=== PATIENT | male | born 1995 | race Caucasian/White ===

== ENCOUNTER 2020-04-24 11:00 | Emergency (ER) | payer MEDICAID ==
[~2020-04-24] VITALS: Ht 172.7 cm; Wt 75.0 kg
[2020-04-24] MEDS ORDERED: LORazepam 1 MG tablet PO ONE (13:35)
[2020-04-24] MEDS ORDERED: LORA-269 PO (14:03)
[2020-04-24 14:09] VITALS: BP 121/76
== END 2020-04-24 14:11 | disposition home or self-care (01) ==
LOC: ER 11:02
DX: F41.9 Anxiety disorder, unspecified (principal); R25.1 Tremor, unspecified; F32.9 Major depressive disorder, single episode, unspecified; Z79.899 Other long term (current) drug therapy
CPT/HCPCS: 99283

== ENCOUNTER 2020-04-28 14:32 | Outpatient (CLI) | payer MEDICAID ==
[~2020-04-28 14:32] MED LIST: LORA-269 PO
== END 2020-04-28 23:59 | disposition home or self-care (01) ==
LOC: CARD DIAG 14:32
PROVIDERS: ATTEND Family Medicine
DX: I34.0 Nonrheumatic mitral (valve) insufficiency (principal)
CPT/HCPCS: 93306

== ENCOUNTER 2022-11-17 13:43 | Emergency (ER) | payer MEDICAID ==
[~2022-11-17] VITALS: Ht 172.7 cm; Wt 86.4 kg
[2022-11-17 14:09] VITALS: BP 135/88
[2022-11-17] MEDS ORDERED: diazepam 5mg tablet PO ONE (15:45)
[2022-11-17] MEDS ORDERED: propranolol 10mg tablet PO ONE (15:45)
[2022-11-17] MEDS ORDERED: LORA-269 PO (15:50)
[2022-11-17] MEDS ORDERED: PROP10TA10 PO (15:50)
--- NOTE | 2022-11-17 16:04 | NUR ---
MEDICATION WASTED WITH JIM MARES
== END 2022-11-17 16:07 | disposition home or self-care (01) ==
LOC: ER 13:43
DX: F41.9 Anxiety disorder, unspecified (principal); R51.9 Headache, unspecified; F32.A Depression, unspecified; Z79.899 Other long term (current) drug therapy; Z79.1 Long term (current) use of non-steroidal anti-inflammatories (NSAID)
CPT/HCPCS: 99283